=== PATIENT | female | born 1955 | race Caucasian/White ===

== ENCOUNTER → 2020-03-26 12:37 | Outpatient (BNVA) | payer OTHER, SELFPAY | PROVIDERS: PCP Family Medicine Adult Medicine; Visit Provider Internal Medicine Endocrinology, Diabetes & Metabolism ==

== ENCOUNTER 2020-03-27 07:59 | Outpatient (REF) | payer OTHER, SELFPAY ==
[2020-03-27 11:02] LABS: Free T4 (Free Thyroxine) 0.73 ng/dL (0.71-1.85)
[2020-03-27 14:25] LABS: Thyroid Stimulating Hormone > 100.00 uIU/mL (0.32-4.0)
== END 2020-03-27 08:00 | disposition home or self-care (01) ==
LOC: HO.10HDL 07:59
PROVIDERS: Visit Provider Internal Medicine Endocrinology, Diabetes & Metabolism
DX: E03.8 Other specified hypothyroidism (principal); E06.3 Autoimmune thyroiditis
CPT/HCPCS: 36415; 84439; 84443

== ENCOUNTER 2020-05-27 08:31 | Outpatient (REF) | payer OTHER, SELFPAY ==
[2020-05-27 11:07] LABS: Free T4 (Free Thyroxine) 1.18 ng/dL (0.71-1.85); Thyroid Stimulating Hormone 1.53 uIU/mL (0.32-4.0)
== END 2020-05-27 08:32 | disposition home or self-care (01) ==
LOC: HO.10HDL 08:31
PROVIDERS: Visit Provider Internal Medicine Endocrinology, Diabetes & Metabolism
DX: E03.8 Other specified hypothyroidism (principal); E06.3 Autoimmune thyroiditis
CPT/HCPCS: 36415; 84439; 84443

== ENCOUNTER 2020-09-25 07:34 | Outpatient (REF) | payer OTHER, SELFPAY ==
[2020-09-25 08:17] LABS: MANUAL DIFF FLAG NO
[2020-09-25 08:24] LABS: Basophils Percent Auto 0.7 % (0-2); Eosinophils Absolute Auto 0.1 X10*3/uL (0.0-0.4); Eosinophils Percent Auto 2.1 % (0-4); Hematocrit 41.1 % (37-47); Hemoglobin 13.1 g/dl (12.0-16.0); Imm Gran Abs Auto 0.03 X10*3/uL (0.00-0.03); Imm Gran Pct Auto 0.5 % (0.0-0.4); Lymphocytes Absolute Auto 1.9 X10*3/uL (1.2-4.9); Lymphocytes Percent Auto 30.3 % (20-40); Mean Corpuscular HGB Conc 31.9 g/dl (31.0-35.0); Mean Corpuscular Hemoglobin 26.4 pg (27.0-33.0); Mean Corpuscular Volume 82.9 fL (80-98); Mean Platelet Volume 11.1 fL (9.4-12.3); Monocytes Absolute Auto 0.6 X10*3/uL (0.1-1.2); Monocytes Percent Auto 10.3 % (2-11); Neutrophils Absolute Auto 3.4 X10*3/uL (2.0-8.3); Neutrophils Percent Auto 56.1 % (45-73); Platelet Count 227 X10*3/uL (160-400); Red Blood Count 4.96 X10*6/uL (4.20-5.50); Red Cell Distribution Width 13.2 % (11.0-16.0); White Blood Count 6.1 X10*3/uL (4.8-10.8)
[2020-09-25 08:49] LABS: Alanine Aminotransferase 20 U/L (0-31); Albumin Level 3.9 g/dL (3.5-5.0); Alkaline Phosphatase 123 U/L (39-117); Anion Gap 12 (12-20); Aspartate Amino Transferase 24 U/L (5-31); Bilirubin Total 0.4 mg/dL (0.0-1.0); Blood Urea Nitrogen 13 mg/dL (9-16); Carbon Dioxide 28 mmol/L (22-29); Chloride 109 mmol/L (96-108); Cholesterol 141 mg/dL; Estimated Glomerular Filt Rate > 60; Glucose Fasting 103 mg/dL (60-99); HDL Cholesterol 45 mg/dL; LDL Cholesterol Calculated 75 mg/dl; Potassium 4.7 mmol/L (3.3-5.1); Sodium 144 mmol/L (135-145); Total Protein 7.1 g/dL (6.5-8.0); Triglycerides 109 mg/dL
[2020-09-29 12:37] LABS: Vitamin D 25-OH, D2 <4 ng/mL; Vitamin D 25-OH, D3 11 ng/mL; Vitamin D 25-OH, Total 11 ng/mL (30-100)
== END 2020-09-25 07:35 | disposition home or self-care (01) ==
LOC: HO.LAB 07:34
PROVIDERS: PCP Internal Medicine; Visit Provider Internal Medicine
DX: D64.9 Anemia, unspecified (principal); E66.01 Morbid (severe) obesity due to excess calories; E78.5 Hyperlipidemia, unspecified; E55.9 Vitamin D deficiency, unspecified
CPT/HCPCS: 36415; 80053; 80061; 82306; 85025

== ENCOUNTER 2020-10-23 07:21 | Outpatient (REF) | payer OTHER, SELFPAY ==
[2020-10-23 09:36] LABS: Free T4 (Free Thyroxine) 1.33 ng/dL (0.71-1.85); Thyroid Stimulating Hormone 0.42 uIU/mL (0.32-4.0)
== END 2020-10-23 07:22 | disposition home or self-care (01) ==
LOC: HO.LAB 07:21
PROVIDERS: PCP Internal Medicine; Visit Provider Nurse Practitioner Gerontology
DX: E06.3 Autoimmune thyroiditis (principal); E03.8 Other specified hypothyroidism; E66.01 Morbid (severe) obesity due to excess calories; Z79.899 Other long term (current) drug therapy; Z68.41 Body mass index [BMI] 40.0-44.9, adult
CPT/HCPCS: 36415; 84439; 84443

== ENCOUNTER 2022-01-06 07:31 | Outpatient (REF) | payer OTHER, SELFPAY ==
[2022-01-06 08:21] LABS: Hemoglobin 13.2 g/dl (12.0-16.0); Mean Corpuscular HGB Conc 31.4 g/dl (31.0-35.0); Mean Corpuscular Hemoglobin 26.2 pg (27.0-33.0); Mean Corpuscular Volume 83.5 fL (80.0-98.0); Mean Platelet Volume 10.8 fL (9.4-12.3); Platelet Count 242 X10*3/uL (160-400); Red Blood Count 5.03 X10*6/uL (4.20-5.50); Red Cell Distribution Width 13.1 % (11.0-16.0); White Blood Count 7.3 X10*3/uL (4.8-10.8)
[2022-01-06 09:15] LABS: Alanine Aminotransferase 19 U/L (0-31); Albumin Level 4.1 g/dL (3.5-5.0); Alkaline Phosphatase 128 U/L (39-117); Anion Gap 15 (12-20); Aspartate Amino Transferase 22 U/L (5-31); Bilirubin Total 0.4 mg/dL (0.0-1.0); Blood Urea Nitrogen 13 mg/dL (9-16); Calcium 9.3 mg/dL (8.4-10.2); Carbon Dioxide 28 mmol/L (22-29); Chloride 105 mmol/L (96-108); Cholesterol 136 mg/dL; Estimated Glomerular Filt Rate > 60; Glucose Fasting 102 mg/dL (60-99); HDL Cholesterol 46 mg/dL; LDL Cholesterol Calculated 72 mg/dl; Potassium 4.9 mmol/L (3.3-5.1); Sodium 143 mmol/L (135-145); TSH reflex Free T4 1.48 uIU/mL (0.32-4.0); Total Protein 7.5 g/dL (6.5-8.0); Triglycerides 94 mg/dL; Vitamin D 25-OH Total 16.8 ng/mL (>30)
== END 2022-01-06 07:32 | disposition home or self-care (01) ==
LOC: HO.LAB 07:31
PROVIDERS: PCP Internal Medicine; Visit Provider Nurse Practitioner Family
DX: E03.9 Hypothyroidism, unspecified (principal)
CPT/HCPCS: 36415; 80053; 80061; 82306; 84443; 85027

== ENCOUNTER 2022-07-22 08:16 | Outpatient (REF) | payer OTHER, SELFPAY ==
--- NOTE | ~2022-07-22 | US_ITS ---
EXAMINATION: US VENOUS ULTRASOUND WITH DOPPLER LOWER EXTREMITY, LEFT CLINICAL INFORMATION: Pain. COMPARISON: None available. TECHNIQUE: Ultrasound of the deep veins is performed from the hip to the calf with compression sonography and color and pulse Doppler assessment. Spectral analysis with color-flow imaging is performed. FINDINGS: There is normal venous compression and respiratory variation and augmented flow. The visualized common femoral vein, superficial femoral vein, profunda femoral vein, popliteal vein, and the trifurcation region shows no evidence of deep venous thrombosis. There is no significant popliteal fossa cyst. If the patient's symptoms persist, followup ultrasound in 5 days 7 days might be of value to exclude proximal propagation from a non-visualized calf vein. US/US venous duplex LE LT IMPRESSION: No DVT demonstrated in the left lower extremity.
== END 2022-07-22 08:17 | disposition home or self-care (01) ==
LOC: HO.US 08:16
PROVIDERS: PCP Internal Medicine; Visit Provider Internal Medicine
DX: M79.605 Pain in left leg (principal)
CPT/HCPCS: 93971

== ENCOUNTER 2022-08-01 07:40 | Outpatient (REF) | payer OTHER, SELFPAY ==
[2022-08-01 09:28] LABS: Alanine Aminotransferase 21 U/L (0-31); Albumin Level 3.9 g/dL (3.5-5.0); Alkaline Phosphatase 127 U/L (39-117); Anion Gap 13 (12-20); Aspartate Amino Transferase 21 U/L (5-31); Bilirubin Total 0.4 mg/dL (0.0-1.0); Blood Urea Nitrogen 13 mg/dL (9-16); Calcium 8.8 mg/dL (8.4-10.2); Carbon Dioxide 26 mmol/L (22-29); Chloride 108 mmol/L (96-108); Cholesterol 134 mg/dL; Estimated Glomerular Filt Rate > 60; Glucose Fasting 101 mg/dL (60-99); HDL Cholesterol 52 mg/dL; LDL Cholesterol Calculated 67 mg/dl; Potassium 4.5 mmol/L (3.3-5.1); Sodium 142 mmol/L (135-145); Total Protein 7.2 g/dL (6.5-8.0); Triglycerides 78 mg/dL
[2022-08-01 09:31] LABS: Thyroid Stimulating Hormone 0.87 uIU/mL (0.32-4.0)
== END 2022-08-01 07:41 | disposition home or self-care (01) ==
LOC: HO.LAB 07:40
PROVIDERS: PCP Internal Medicine; Visit Provider Internal Medicine
DX: E66.01 Morbid (severe) obesity due to excess calories (principal); E03.8 Other specified hypothyroidism; E06.3 Autoimmune thyroiditis; E55.9 Vitamin D deficiency, unspecified
CPT/HCPCS: 36415; 80053; 80061; 82306; 84443

== ENCOUNTER 2022-08-02 14:00 | Outpatient (REF) | payer OTHER, SELFPAY ==
--- NOTE | ~2022-08-02 | MM_ITS ---
EXAMINATION: MM SCREENING DIGITAL BREAST TOMOSYNTHESIS, BILATERAL CLINICAL INFORMATION: Screening. Asymptomatic. The lifetime risk of breast cancer based on the Tyrer-Cuzick Model is 6%. COMPARISON: Mammography: 05/12/2016, 01/17/2006. TECHNIQUE: Digital breast tomosynthesis is performed in both the craniocaudal and mediolateral oblique views along with computer-aided detection (CAD). Synthesized 2D images are generated from the tomosynthesis. FINDINGS: The breasts are almost entirely fatty (ACR BI-RADS breast composition Category a). Background stromal markings are similar to prior exam and there is no developing density or architectural abnormality. There are no significant masses, abnormal calcifications, or other abnormalities. The axilla and skin contours are unremarkable. MM/MM tomosynthesis screening BI IMPRESSION: No mammographic evidence of malignancy. ASSESSMENT: BI-RADS 1: Negative RECOMMENDATION: Routine annual mammography screening. This patient's information was entered into a reminder system with a target due date for their next mammogram.
== END 2022-08-02 14:01 | disposition home or self-care (01) ==
LOC: HO.MAMMO 14:00
PROVIDERS: PCP Internal Medicine; Visit Provider Internal Medicine
DX: Z12.31 Encounter for screening mammogram for malignant neoplasm of breast (principal)
CPT/HCPCS: 77063; 77067

== ENCOUNTER 2022-08-11 09:29 | Outpatient (REF) | payer OTHER, SELFPAY ==
--- NOTE | ~2022-08-11 | MM_ITS ---
EXAMINATION: BONE DENSITOMETRY CLINICAL INDICATION: Unspecified menopausal and perimenopausal disorder. COMPARISON: None (current study represents initial baseline exam). TECHNIQUE: Using a [employer] DXA System (software version: 13.1) manufactured by [employer], dual-energy x-ray absorptiometry was performed of the lumbar spine and left hip. The images are of good technical quality. Summary results are attached. FINDINGS: AP SPINE L1-L4: BMD 1.257 g/cm2, Z-score 1.2, T-score 0.6, normal. LEFT FEMUR, NECK: BMD 0.781 g/cm2, Z-score -1.1, T-score -1.8, osteopenia. LEFT FEMUR, TOTAL: BMD 0.885 g/cm2, Z-score -0.5, T-score -1.0, normal. IDENTIFIED RISK FACTORS: Menopause. HISTORY OF FRACTURE: None listed. MEDICATIONS: Vitamin D. MM/XR DEXA axial skeleton IMPRESSION: 1. DIAGNOSIS: Osteopenia based on the lowest T-score value of -1.8 in the femoral neck applying World Health Organization criteria. 2. 10-YEAR FRACTURE RISK PREDICTION, FRAX: Major osteoporotic fracture (clinical spine, forearm, hip or shoulder) 4.8%. Hip fracture 0.6%. 3. Treatment Recommendations: NOF guidelines recommend consideration for treatment in postmenopausal women and men age 50 and older presenting with the following: -A hip or vertebral (clinical or morphometric) fracture. -T-score less than or equal to -2.5 at the femoral neck or spine after appropriate evaluation to exclude secondary causes. -Low bone mass at the hip or spine and a 10-year fracture probability by FRAX of greater than or equal to 3% for hip fracture or greater than or equal to 20% for major osteoporotic fracture based on the [place] adapted WHO algorithm. 4. Other Recommendations: All treatment decisions require clinical judgment and consideration of individual patient factors, including patient preferences, comorbidities, previous drug use, risk factors not captured in the FRAX model (e.g. frailty, falls, vitamin D deficiency, increased bone turnover, interval significant decline in bone density) and possible under or overestimation of fracture risk by FRAX. Additional medical evaluation for secondary cause of low bone mineral density may be appropriate. FUTURE SCAN RECOMMENDATION: People with diagnosed cases of osteoporosis or at high risk for fracture should have regular bone mineral density tests. For patients eligible for Medicare, routine testing is allowed once every 2 years. The testing frequency can be increased to one year for patients who have rapidly progressing disease, those who are receiving or discontinuing medical therapy to restore bone mass, or have additional risk factors.
== END 2022-08-11 09:30 | disposition home or self-care (01) ==
LOC: HO.MAMMO 09:29
PROVIDERS: PCP Internal Medicine; Visit Provider Internal Medicine
DX: Z13.820 Encounter for screening for osteoporosis (principal); N95.9 Unspecified menopausal and perimenopausal disorder
CPT/HCPCS: 77080

== ENCOUNTER 2023-01-17 16:48 | Outpatient (AMB) | payer OTHER, SELFPAY ==
[2023-01-17 16:52] VITALS: BP 126/80; BMI 42.4
--- NOTE | 2023-01-17 16:52 | MHC.PC.OV ---
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: No Accompanied by: Self / Same As Patient Allergies Sulfa (Sulfonamide Antibiotics) [Sulfa (Sulfonamides)] Allergy (Intermediate, Verified 01/17/23 16:57) HIVES Medication List - Last Reconciled 01/17/23 by Jerri Cain MD calcium carbonate 600 mg PO BID 90 days cholecalciferol (vitamin D3) 50 mcg PO DAILY sertraline 25 mg PO DAILY 30 days Synthroid (levothyroxine) 112 mcg PO DAILY NS Ventolin HFA 90 mcg/actuation (albuterol sulfate) 2 puffs inhalation Q6H PRN 30 days NS Tobacco use date assessed: 07/19/22 Fall risk assessment: No Falls in past year Last assessed Fall Risk: 01/17/23 Dental Screening Dental Screen Date: 01/17/23 Did you have a dental visit in the last 12 months?: No Did you have a dental problem in the last 6 months where you did not have access to dental care?: No Was dental information given to patient?: Patient has dentist HPI HPI Comments History of Present Illness Details This is a 67-year-old female with moderate major depression, mild persistent asthma, hypothyroidism morbid obesity that comes today for follow-up on her conditions. Depression has markedly improved with SSRIs. He has rescue inhaler once a month. TSH was normal. She is morbidly obese with a BMI of 42.4 and was advised to diet and exercise to reach BMI goal less than 30. Declines weight loss surgery for now. She has anxiety sometimes and is asking for medication to be used as needed. I will start her on lorazepam as needed. Patient is aware that can cause addiction, sedation and memory loss. [facility] Medical History (Updated 01/18/23 @ 10:33 by Jerri Cain MD) Obesity due to excess calories Mild persistent asthma Morbid obesity Hypothyroidism Surgical History History of surgery Hx of hand surgery Family History Father Diabetes mellitus Heart disease Obesity Mother Diabetes mellitus Obesity Brother Diabetes mellitus Obesity Sister Diabetes mellitus Obesity Family/Other Mental health disorder Household Members: None Housing: House Alcohol intake: current Alcohol intake frequency: a few times a week Alcohol type: wine Patient Tobacco Use Status: Former Tobacco user Tobacco use type: Cigarette e-Cigarette/Vaping Use: Never Used Second Hand Smoke Exposure: No service: No Current occupational status: employed Current occupational exposures/hazards: No Cognitive needs: No Hearing needs: No Vision needs: Yes Questionnaire Thrive Questionnaire Date Thrive assessed: 07/19/22 GRIFFIN-7 AMB Questionnaire GRIFFIN-7 Date GRIFFIN - 7 assessed: 07/19/22 Source: Developed by Drs. Lj Morgan, Dee Ordonez, Bo Wharton and colleagues, with an educational dimitrios from [employer]. Review of Systems Const All systems reviewed & are unremarkable except as noted in HPI and below Eyes Reports no additional complaints, Denies change in vision and Denies other visual disturbances Card Denies chest pain at rest, Denies chest pain with activity, Denies edema, Denies irregular heart rhythm, Denies claudication, Denies dyspnea, Denies dyspnea on exertion, Denies orthopnea, Denies paroxysmal nocturnal dyspnea and Denies slow heart rate Resp Denies cough, Denies dyspnea and Denies dyspnea on exertion GI Denies abdominal pain, Denies change in bowel habits, Denies excessive flatus, Denies nausea and Denies vomiting Denies urinary incontinence, Denies urinary hesitancy and Denies urinary urgency Musc Denies abnormal gait, Denies atrophy, Denies deformity and Denies limited range of motion Skin/Breast Denies bleeding lesions, Denies changing lesions and Denies rash Neuro Denies abnormal gait and Denies lack of coordination Physical exam (Primary Care) Vital Signs: Last Vital Signs BP 126/80 01/17/23 16:52 BMI result Body Mass Index 42.4 Tobacco/Smoking Status: Tobacco use Status Tobacco use date assessed 07/19/22 01/17/23 16:56 Patient Tobacco Use Status Former Tobacco user 01/17/23 16:56 Tobacco use type Cigarette 01/17/23 16:56 e-Cigarette/Vaping Use Never Used 01/17/23 16:56 Thrive Assessment: Date of Thrive Assessment Date Thrive assessed 07/19/22 01/17/23 16:56 Eyes General: appearance normal, both eyes and all related structures Eyelids: Yes eyelids normal Conjunctivae: conjunctivae normal Neck Neck: Yes normal visual inspection and Yes supple Resp Effort & Inspection: normal respiratory effort Auscultation: clear to auscultation bilaterally Cardio Jugular venous distension: no JVD Rate: regular rate Rhythm: regular rhythm Heart sounds: S1 normal heart sound present and S2 normal heart sound present Extrem General: Yes full ROM Psych Appearance: grossly normal Office Procedures Flu Questionnaire Does the patient have a severe egg allergy?: No Immunizations flu vacc [id number] 6mos up(PF) 60 mcg(15 mcgx4)/0.5 mL IM syringe Performing Provider: Jerri Cain MD [facility] Documented (not given) by: STEVE Truong on 01/17/23 16:56 Reason Not Given: Patient Refused Assessment and Plan Assessment & Plan (1) Moderate major depression: Code(s): F32.1 - Major depressive disorder, single episode, moderate Plan: Continue SSRIs. (2) Morbid obesity: Code(s): E66.01 - Morbid (severe) obesity due to excess calories Plan: Start diet and exercise. BMI goal is less than 30. 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 (4) Mild persistent asthma: Code(s): J45.30 - Mild persistent asthma, uncomplicated Qualifiers: Asthma complication type: uncomplicated Qualified Code(s): J45.30 - Mild persistent asthma, uncomplicated Plan: Use rescue inhaler as needed. 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
== END 2023-01-17 17:06 | disposition home or self-care (01) ==
PROVIDERS: Visit Provider Internal Medicine
DX: F32.1 Major depressive disorder, single episode, moderate (principal); E66.01 Morbid (severe) obesity due to excess calories; Z68.41 Body mass index [BMI] 40.0-44.9, adult; E03.8 Other specified hypothyroidism; E06.3 Autoimmune thyroiditis; J45.30 Mild persistent asthma, uncomplicated
CPT/HCPCS: 99214

== ENCOUNTER 2025-02-04 14:02 | Outpatient (REF) | payer MEDICARE, SELFPAY ==
[2025-02-04 18:09] LABS: Thyroid Stimulating Hormone 1.35 uIU/mL (0.32-4.0)
== END 2025-02-04 14:03 | disposition home or self-care (01) ==
LOC: HO.LAB 14:02
PROVIDERS: PCP Internal Medicine; Visit Provider Internal Medicine
DX: E55.9 Vitamin D deficiency, unspecified (principal); E06.3 Autoimmune thyroiditis; E03.8 Other specified hypothyroidism; E66.01 Morbid (severe) obesity due to excess calories; Z23 Encounter for immunization; F32.1 Major depressive disorder, single episode, moderate; Z13.31 Encounter for screening for depression; Z13.39 Encounter for screening examination for other mental health and behavioral disorders
CPT/HCPCS: 36415; 82306; 84443; 90471; 90677; 96127; 99212

== ENCOUNTER 2025-02-04 14:02 | Outpatient (AMB) | payer MEDICARE, SELFPAY ==
--- OUTSIDE RECORDS SUMMARY | 2023-05-23 10:02 | XMS_ITS | Encounter Summary ---
Author Organization [facility] Address [address] [place] [id number] Phone Care Team Providers Care Marine Insulator Name Role Phone Jerri Hoffman MD Primary Care Provid er Encounter Details Date Type Department Care Team (Late st Contact Info) Description 05/23/2023 11:02 AM EDT Hospital Encounter [facility] [address] [place] [id number] Sharif Medley PA-C [address] [place] [id number] Social History Tobacco Use Types Packs/Day Years Used Date Smoking Tobacco: Never Smokeless Tobacco: Never Education Answer Date Recorded Are you interested in more education? Not on augusto e 05/23/2023 Are you concerned about learning? Not on file 05/23/2023 No 05/23/2023 No 05/23/2023 Digital Access Answer Date Recorded No 05/23/2023 No 05/23/2023 Reliable internet access at home? Not on file 05/23/2023 Device with a working camera? Not on file Comments Unknown Sex and Gender Information Value Date Recorded Sex Assigned at Not on file Legal Sex Female 10:40 AM EDT Gender Identity Not on file Sexual Orientation Not on file documented as of this encounter Plan of Treatment Not on file documented as of this encounter Procedures Procedure Name Priority Date/Time Associated Diagnosis Comments XR CHEST PA AND LATERAL 2 VIEWS Urgent/patient waiting 05/23/2023 11:06 AM EDT Acute bronchitis, unspecified organism documented in this encounter Results * XR CHEST PA AND LATERAL 2 VIEWS (05/23/2023 11:06 AM EDT) Anatomical Region Laterality Modality Chest Computed Radiogr aphy 05/23/2023 11:1 5 AM EDT Impressions 05/23/2023 11:16 AM EDT No pneumonia or acute cardiopulmonary process. Narrative 05/23/2023 11:16 AM EDT XR CHEST PA AND LATERAL 2 VIEWS Referring clinician's provided indication for this examination in [facility]: Cough; Dyspnea (Shortness of Breath); persistent cough and sob after viral infection ?PNA COMPARISON: None. FINDINGS: Devices/Tubes/Lines: None. Lungs: No focal consolidation or pulmonary edema. Pleura: No pleural effusion or pneumothorax. Heart/Mediastinum: Normal cardiac silhouette. Normal mediastinal contours. Atherosclerotic calcification of the aorta. Bones/Soft Tissues: No acute osseous abnormality. Mild dextroscoliosis of the thoracic spine with mild multilevel degenerative changes. Procedure Note Srinivasan Mann MD - 05/23/2023 XR CHEST PA AND LATERAL 2 VIEWS Referring clinician's provided indication for this examination in [facility]:Cough; Dyspnea (Shortness of Breath); persistent cough and sob after viralinfection ?PNA COMPARISON: None. FINDINGS: Devices/Tubes/Lines: None. Lungs: No focal consolidation or pulmonary edema. Pleura: No pleural effusion or pneumothorax. Heart/Mediastinum: Normal cardiac silhouette. Normal mediastinal contours.Atherosclerotic calcification of the aorta. Bones/Soft Tissues: No acute osseous abnormality. Mild dextroscoliosis ofthe thoracic spine with mild multilevel degenerative changes. IMPRESSION: No pneumonia or acute cardiopulmonary process. Sharif Medley PA-C IMG XR CHEST Final Result documented in this encounter Visit Diagnoses Not on filedocumented in this encounter Care Teams Marine Insulator Relationship Specialty Start Date End Date Jerri Hoffman MD [address] [place] [address] PCP - General Internal Medicine 05/23/23 documented as of this encounter Additional Source Comments The information contained in this document represents components of the legal health record. It is not the complete legal health record.[facility]
--- NOTE | 2025-02-04 14:18 | MHC.PC.OV ---
Vital Signs 02/04/25 14:19 Height 4 ft 11 in Weight 216 lb 6 oz BMI 43.7 BP 120/62 Blood Pressure Location Lt brachial Position Sitting Respiration 18 Pulse Source Pulse Oximeter Temp Source Temporal Artery Scan Pulse Oximetry (%) 96 Oxygen Delivery Method Room Air Intake Visit Reasons: follow up/med review Pill Maker Required: No Accompanied by: Self / Same As Patient Allergies Sulfa (Sulfonamide Antibiotics) (Sulfa (Sulfonamides)) Allergy (Intermediate, Verified 02/04/25 14:48) HIVES Medication List - Last Reconciled 02/04/25 by Jerri Cain MD calcium carbonate 600 mg PO BID 90 days cholecalciferol (vitamin D3) 50 mcg PO DAILY lorazepam 0.5 mg PO DAILY PRN 30 days sertraline 25 mg PO DAILY 30 days Synthroid (levothyroxine) 112 mcg PO DAILY NS Ventolin HFA 90 mcg/actuation (albuterol sulfate) 2 puffs inhalation Q6H PRN 30 days NS Tobacco use date assessed: 02/04/25 Fall risk assessment: 1 Fall in past year Last assessed Fall Risk: 02/04/25 Dental Screening Dental Screen Date: 02/04/25 Did you have a dental visit in the last 12 months?: Yes Did you have a dental problem in the last 6 months where you did not have access to dental care?: No Was dental information given to patient?: Patient has dentist HPI HPI Comments History of Present Illness Details The patient is a 69 year old female presenting for health maintenance and preventative care. She has a history of COVID-19 infection in July, which caused her to cancel previous appointments. She reports feeling very tired recently. She is morbidly obese with BMI of 43.7 and was advise to do diet and exercise. The patient has a history of hypothyroidism managed with Synthroid 112 mcg and does not see an marine fisheries technician. She takes calcium, vitamin D, and uses lorazepam and sertraline as needed for anxiety and depression, respectively. She has very few lorazepam pills remaining from a prior prescription. Regarding health screenings, her last mammogram was in 2020, and her last bone densitometry was in 2022. Her last colon cancer screening was a Cologuard test in 2022. She has a known allergy to sulfa drugs, which cause hives. The patient recently fell two weeks ago after missing a step while helping her mother, injuring her wrist. She has declined the flu vaccine due to past severe reactions that caused her to be sick for a week. [facility] Medical History Obesity due to excess calories Mild persistent asthma Morbid obesity Hypothyroidism Surgical History History of surgery Hx of hand surgery Family History Father Diabetes mellitus Heart disease Obesity Mother Diabetes mellitus Obesity Brother Diabetes mellitus Obesity Sister Diabetes mellitus Obesity Family/Other Mental health disorder Social History Household Members: None Housing: House Alcohol intake: current Alcohol intake frequency: a few times a week Alcohol type: wine Patient Tobacco Use Status: Former Tobacco user Tobacco use type: Cigarette e-Cigarette/Vaping Use: Never Used Second Hand Smoke Exposure: No service: No Current occupational status: employed Current occupational exposures/hazards: No Cognitive needs: No Hearing needs: No Vision needs: Yes Questionnaire Thrive Questionnaire Date Thrive assessed: 02/04/25 I am a: Patient What is your living situation today?: I have a steady place to live Within the past 12 months, did the food you bought not last and you didn't have the money to get more?: Never true Within the past 12 months, did you worry whether your food would run out before you got money to buy more?: Never true Do you have trouble paying for medicines?: No Do you have trouble getting transportation to medical appointments?: No Do you have trouble paying your heating and electricity bill?: No Do you have trouble taking care of your child, family member or friend?: No Do you have trouble with day-to-day activities such as bathing, preparing meals, shopping, managing finances, etc.?: No Are you currently unemployed and looking for a job?: No Are you interested in more education?: No Please select the resources that you would like help with: None Currently or been in a relationship where the following occur: No concerns reported THRIVE Score: 0 AUDIT C Alcohol Use Questionnaire (AUDIT-C) 1. How often do you have a drink containing alcohol?: 2-4 times a month 2. How many drinks containing alcohol do you have on a typical day when you are drinking?: 1 or 2 3. How often do you have six or more drinks on one occasion?: Never Total Score: 2 GRIFFIN-7 AMB Questionnaire GRIFFIN-7 Date GRIFFIN - 7 assessed: 02/04/25 Feeling nervous, anxious, or on edge: 1 = Several days Not being able to stop or control worryin = Several days Worrying too much about different things: 1 = Several days Trouble relaxin = Several days Being so restless that it is hard to sit still: 1 = Several days Becoming easily annoyed or irritable: 1 = Several days Feeling afraid as if something awful might happen: 1 = Several days Total GRIFFIN-7 score (0-4 normal; 5-9 mild; 10-14 moderate; 15-21 severe): 7 Source: Developed by Drs. Lj Morgan, Dee Ordonez, Bo Wharton and colleagues, with an educational dimitrios from [employer]. Review of Systems Const All systems reviewed & are unremarkable except as noted in HPI and below Card Denies chest pain at rest, Denies chest pain with activity, Denies edema, Denies irregular heart rhythm, Denies claudication, Denies dyspnea, Denies dyspnea on exertion, Denies orthopnea, Denies paroxysmal nocturnal dyspnea and Denies slow heart rate Resp Denies cough, Denies dyspnea and Denies dyspnea on exertion Physical exam (Primary Care) Vital Signs: Last Vital Signs Resp 18 02/04/25 14:19 BP 120/62 02/04/25 14:19 Pulse Ox 96 02/04/25 14:19 Oxygen Delivery Method Room Air 02/04/25 14:19 BMI result Body Mass Index 43.7 Tobacco/Smoking Status: Tobacco use Status Tobacco use date assessed 02/04/25 02/04/25 14:28 Patient Tobacco Use Status Former Tobacco user 02/04/25 14:28 Tobacco use type Cigarette 02/04/25 14:28 e-Cigarette/Vaping Use Never Used 02/04/25 14:28 Thrive Assessment: Date of Thrive Assessment Date Thrive assessed 02/04/25 02/04/25 14:28 Currently or been in a relationship where the following occur: No concerns reported Resp Effort & Inspection: normal respiratory effort Auscultation: clear to auscultation bilaterally Cardio Jugular venous distension: no JVD Rate: regular rate Rhythm: regular rhythm Heart sounds: S1 normal heart sound present and S2 normal heart sound present Extrem General: Yes full ROM Immunizations pneumoc 20-isabelle conj-dip cr(PF) 0.5 mL IM syringe Performing Provider: Jerri Cain MD Performing Location: [facility] Administered by: Brandy Perales LPN on 02/04/25 15:10 Dose Route Admin Location Dispensed Lot Number Expiration Date [employer] Professional 0.5 mL IM Left Deltoid 0.5 mL [id number] 11/26/25 8692-5711-95 [employer] Total Dispensed Waste 0.5 mL 0 % VIS Given Date VIS Provided VIS Publication Date 02/04/25 Single Vaccine 24 Eligibility Eligibility Date Funding Source Not [facility] Eligible 02/04/25 Private Coding Level of Care Code Est Pt Level 3 (23446) Diagnoses 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 E03.8; E06.3 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 Health Maintenance The patient agreed to receive the pneumonia vaccine today. She declined the influenza vaccine due to a history of severe adverse reactions. A bone densitometry was ordered as it has been two years since her last scan. An order will be placed for a mammogram, as she is due. Her next Cologuard is due in 2025. 2. Fatigue And Hypothyroidism To evaluate fatigue, non-fasting blood work to check thyroid function and vitamin D level will be done today. Further fasting blood work is planned in four months. 3. Morbid obesity Start diet and exercise. Orders: Orders Thyroid Stimulating Hormone Today E03.8 - Other specified hypothyroidism, E06.3 - Autoimmune thyroiditis Comprehensive [place]. Panel Fast 4 Months E66.01 - Morbid (severe) obesity due to excess calories MM tomosynthesis screening BI Today E03.8 - Other specified hypothyroidism, E06.3 - Autoimmune thyroiditis, Z12.31 - Encounter for screening mammogram for malignant neoplasm of breast Vitamin D 25-OH Total Today E55.9 - Vitamin D deficiency, unspecified Lipid Panel 4 Months E66.01 - Morbid (severe) obesity due to excess calories, E78.5 - Hyperlipidemia, unspecified Thyroid Stimulating Hormone 4 Months E03.8 - Other specified hypothyroidism, E06.3 - Autoimmune thyroiditis XR DEXA axial skeleton Today E03.8 - Other specified hypothyroidism, E06.3 - Autoimmune thyroiditis, Z78.0 - Asymptomatic menopausal state Pneumococcal 20 Immunization Today Z23 - Encounter for immunization
[2025-02-04 14:19] VITALS: BP 120/62; RESP 18; O2SAT 96; BMI 43.7
--- OUTSIDE RECORDS SUMMARY | 2025-02-04 20:02 | XMS_ITS | Clinical Summary ---
Author Organization [facility] Address [address] [place] [address] Phone Care Team Providers Care Closed Circuit Screen Watcher Name Role Phone Jerri Hoffman MD Primary Care Provid er Allergies Active Allergy Reactions Criticality Noted Date Comments Sulfa (Sulfonamide Antibiotics) 04/28 Medications sertraline (ZOLOFT) 25 MG tablet Take 1 tablet by mouth every morning. 4 Active SYNTHROID 112 mcg tablet Take 1 tablet by mouth every morning. 4 Active albuterol 90 mcg/actuation inhaler 2 PUFF INHALED EVERY 6 HOURS NEEDED FOR SHORTNESS OF BREATH OR WHEEZING FOR 30 DAYS 4 Active HYDROcodone-michelle atropine (HYDROMET) 5-1.5 mg/5 mL syrup Take 5 mL by mouth nightly at bedtime as needed (cough). Partial fill ok 60 mL 4 Active predniSONE (DELTASONE) 50 MG tablet Take 1 tablet (50 mg total) by mouth daily with breakfast. 5 tablet 4 Active Social History Tobacco Use Types Packs/Day Years Used Date Smoking Tobacco: Never Smokeless Tobacco: Never Tobacco Cessation:Counseling Given: Not Answered Education Answer Date Recorded Are you interested [...] on file Sexual Orientation Not on file Last Filed Vital Signs Vital Sign Reading Time Taken Comments Blood Pressure 124/74 05/23/2023 10:50 AM EDT Pulse 84 05/23/2023 10:50 AM EDT Temperature 36.8 C (98.3 F) 05/23/2023 10:50 AM EDT Respiratory Rate 18 05/23/2023 10:50 AM EDT Oxygen Saturation 97% 05/23/2023 10:50 AM EDT Inhaled Oxygen Concentration - - Weight - - Height - - Body Mass Index - - Plan of Treatment Health Maintenance Due Date Last Done Comments Adult Td,Tdap Booster 1957 LIPID PANEL 1957 TSH LEVEL 1957 DEPRESSION SCREENING 1969 HEPATITIS C SCREENING 09/19/1975 SMOKING STATUS SCREENING (On ce After 26 Yrs) 09/19/1983 MAMMOGRAM 1997 COLOGUARD 2002 COLONOSCOPY 2002 COLORECTAL CANCER SCREENING 2002 FIT TEST 2002 FOBT 2002 SIGMOIDOSCOPY 2002 VIRTUAL COLONOSCOPY 2002 PNEUMOCOCCAL VACCINES (50+ y ears) (1 of 1 - PCV) 09/19/2007 ZOSTER VACCINES (1 of 2) 09/19/2007 OSTEOPOROSIS SCREENING INITI AL (ONE-TIME) 2022 INFLUENZA VACCINE (#1) 2024 COVID-19 VACCINE (1 - 2024-2 6 season) 2024 RSV VACCINE (1 - 1-dose 75+ series) 2032 HEPATITIS A VACCINES Aged Out No long er eligible based on patient's age to complete this topic HIB VACCINES Aged Out No longer eligi ble based on patient's age to complete this topic MENINGOCOCCAL VACCINES (ACWY) Aged Out No longer eligible based on patient's age to complete this topic MENINGOCOCCAL VACCINES (B) Aged Out N o longer eligible based on patient's age to complete this topic Medical Devices Not on file [facility] Care Teams Closed Circuit Screen Watcher Relationship Specialty Start Date End Date Jerri Hoffman MD [address] [place] [address] PCP - General Internal Medicine 05/23/23 Additional Source Comments The information contained in this document represents components of the legal health record. It is not the complete legal health record.[facility]
== END 2025-02-04 15:12 | disposition home or self-care (01) ==
LOC: HO.HMCH 14:03
PROVIDERS: PCP Internal Medicine; Visit Provider Internal Medicine
DX: E03.8 Other specified hypothyroidism (principal); E66.01 Morbid (severe) obesity due to excess calories; F32.1 Major depressive disorder, single episode, moderate; Z68.41 Body mass index [BMI] 40.0-44.9, adult; E06.3 Autoimmune thyroiditis; Z23 Encounter for immunization